=== PATIENT | female | born 1965 | race Caucasian/White ===

== ENCOUNTER 2019-07-04 14:34 | Emergency (ER) | payer SELFPAY ==
[~2019-07-04] VITALS: Ht 170.2 cm; Wt 63.5 kg
[2019-07-04] MEDS ORDERED: IPRATROPIUM BROMIDE 0.02% 2.5 ML NEB NEB STA (15:26)
[2019-07-04] MEDS ORDERED: ALBUTEROL SULF 0.083% NEB SOLN 3 ML NEB NEB STA (15:26)
[2019-07-04] MEDS ORDERED: DEXAMETHASONE SOD PHOS 10 MG/1 ML VIAL IM NR (15:30)
[2019-07-04] MEDS ORDERED: KETOROLAC TROMETHAMINE 60 MG/2 ML VIAL IM NR (15:30)
[2019-07-04] MEDS ORDERED: ACETAMINOPHEN/CODEINE ELIX 120-12 MG/5 ML UDC NG ONE (15:30)
--- NOTE | 2019-07-04 17:41 | Diagnostic Imaging Report ---
EXAMINATION: CHEST 2 VIEWS INDICATION: ^ORDER PLACED BY ^[id number] ^[id number] ^Y COMPARISON: None FINDINGS: PA and lateral views TUBES and LINES: None. LUNGS: Lungs are well inflated. Mild biapical pleuroparenchymal scarring. There is no evidence of pneumonia or pulmonary edema. PLEURA: No pleural effusion or pneumothorax. HEART AND MEDIASTINUM: The cardiomediastinal silhouette is unremarkable. BONES AND SOFT TISSUES: No acute osseous lesion. Soft tissues are unremarkable. UPPER ABDOMEN: No free air under the diaphragm. Right upper quadrant cholecystectomy clips. IMPRESSION: No acute thoracic abnormality. Signed by: Dr. Dominga Montana M.D. on 07/04/2019 5:37 PM
[2019-07-04 18:18] VITALS: BP 120/63
--- OUTSIDE RECORDS SUMMARY | 2019-07-10 12:06 | XMS REPORT ---
[facility] Address Unknown Phone Unavailable Care Team Providers Care Proposal Engineer Name Role Phone SAMANTHA FERRER Unavailable Unavailable Problems This patient has no known problems. Allergies, Adverse Reactions, Alerts This patient has no known allergies or adverse reactions. Medications This patient has no known medications. Encounters Start Date/Time End Date/Time Encounter Type Admission Type Attending [facility] Care Department Encounter ID 2019-03-01 09:35:00 2019-03-01 09:35:00 Emergency [facility] [id number] 2019-02-27 20:25:00 2019-02-27 20:25:00 Emergency E [facility] [id number] 2019-02-10 12:08:00 2019-02-10 12:08:00 Emergency E [facility] [id number] 2018-08-22 00:00:00 2018-08-22 00:00:00 Outpatient [facility] [id number] 2018-08-21 00:00:00 2018-08-21 00:00:00 Outpatient [facility] [id number] 2018-06-27 00:00:00 2018-06-27 00:00:00 Outpatient [facility] [id number] 2018-02-17 09:12:09 2018-02-17 09:12:09 Outpatient [facility] [id number] 2018-01-01 00:00:00 2018-01-01 00:00:00 Outpatient [facility] [id number] 2017-12-25 00:00:00 2017-12-25 00:00:00 Outpatient [facility] [id number] 2017-11-28 14:49:02 2017-11-28 14:49:02 Outpatient [facility] [id number] Results Test Description Test Time Test Comments Text Results Atomic Results Result Comments CHEST 2 VIEWS 2019-07-04 17:37:00 [facility] [address] [place] [id number] Patient Name: NELLY FERNANDEZ MR #: [id number] : 1965 Age/Sex: 53/F Req #: [id number] Adm Physician: Ordered by: SAMANTHA 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 LUNGS: Lungs are well inflated. Mild biapical pleuroparenchymal scarring. There is no evidence of pneumonia or pulmonary edema. PLEURA: No pleural effusion or pneumothorax. HEART AND MEDIASTINUM: The cardiomediastinal silhouette is unremarkable. BONES AND SOFT TISSUES: No acute osseous lesion. Soft tissues are unremarkable. UPPER ABDOMEN: No free air under the diaphragm. Right upper quadrant cholecystectomy clips. IMPRESSION: No acute thoracic abnormality. Signed by: Dr. Yolanda Clark M.D. on 07/04/2019 5:37 PM Dictated By: YOLANDA CLARK MD 36 Transcribed By: JAYMIE on 07/04/191736 COPY TO: SAMANTHA JAUREGUI NP
== END 2019-07-04 18:29 | disposition home or self-care (01) ==
LOC: ER 14:34
DX: R05 Cough (principal); R07.89 Other chest pain; J20.9 Acute bronchitis, unspecified
CPT/HCPCS: 71046; 93005; 94640; 96372; 99283; J1100; J1885